=== PATIENT | female | born 1985 | race Two or more races ===

== ENCOUNTER 2023-12-10 21:22 | Emergency (ER) | payer OTHER ==
[~2023-12-10] VITALS: Ht 162.6 cm; Wt 97.5 kg
[2023-12-10] MEDS ORDERED: KETOROLAC TROMETHAMINE 60 MG VIAL IM ONE (23:15)
[2023-12-10] MEDS ORDERED: CEFTRIAXONE SODIUM 1,000 MG VIAL IM ONE (23:15)
== END 2023-12-11 01:45 | disposition home or self-care (01) ==
LOC: ER 21:22
DX: J35.1 Hypertrophy of tonsils (principal); E78.00 Pure hypercholesterolemia, unspecified